=== PATIENT | male | born 1960 | race Caucasian/White ===

== ENCOUNTER 2017-10-03 15:14 | Inpatient (IN) | payer MEDICAID, OTHER ==
[~2017-10-03] VITALS: Ht 182.9 cm; Wt 118.2 kg
[2017-10-03] MEDS ORDERED: SODIUM CHLORIDE 0.9% 1,000 ML IV ONE (16:33)
[2017-10-03] MEDS ORDERED: FUROSEMIDE 40 MG/4 ML VIAL IV ONE (16:45)
[2017-10-03 17:01] LABS: Urine Bacteria MANY /hpf (None Seen); Urine Blood 3+ /uL (Negative); Urine Specific Gravity 1.014 (1.001-1.035); Urine WBC 832 /hpf (0 - 3); Urine WBC Clumps PRESENT /hpf (None Seen)
[2017-10-03] MEDS ORDERED: AZITHROMYCIN 500MG/ 250ML 250 ML IV ONE (17:15)
[2017-10-03] MEDS ORDERED: cefTRIAXone 1GM/10ml IVPUSH 10 ML IV ONE (17:15)
[2017-10-03 17:42] LABS: Basophils # (auto) 0 uL; Eosinophils # (auto) 0.3 uL; Hemoglobin 10.3 g/dL (13.5-17.5); Lymphocytes # (auto) 1.1 uL; Nucleated Red Blood Cells % 0.1 %
[2017-10-03 17:44] LABS: Basophils % (auto) 0.4 % (0.0-2.0); Eosinophils % (auto) 2.5 % (0.0-7.0); Hematocrit 31.9 % (41.0-53.0); Lymphocytes % (auto) 9.2 % (10.0-50.0); Mean Corpuscular Hemoglobin 27.6 pg (28.0-32.0); Mean Corpuscular Hgb Conc. 32.3 g/dL (32.0-36.0); Mean Corpuscular Volume 85.4 fL (80.0-100.0); Monocytes % (auto) 8.5 % (0.0-12.0); Neutrophils % (auto) 79.4 % (37.0-80.0); Platelet Count (auto) 56 10^3/uL (140-450); Red Blood Cells 3.74 10^6/uL (4.5-5.90); White Blood Cell 11.4 10^3/uL (4.4-10.8)
[2017-10-03 17:49] LABS: Red Cell Distribution Width 23.3 % (11.8-14.3)
[2017-10-03 18:05] LABS: Alanine Aminotransferase 27 U/L (16-61); Alkaline Phosphatase 305 U/L (45-117); Anion Gap 13 (5-15); Aspartate Aminotransferase 44 U/L (15-37); BUN/Creatinine Ratio 18.7; Blood Urea Nitrogen 34 mg/dL (7-18); Calcium 7.6 mg/dL (8.5-10.1); Carbon Dioxide 23 mmol/L (21-32); Chloride 93 mmol/L (98-107); GFR African American 49 mL/min; GFR Non-African American 41 mL/min; Glucose 56 mg/dL (74-106); Sodium 129 mmol/L (136-145); Total Protein 5.4 g/dL (6.4-8.2)
[2017-10-03 18:08] LABS: INR 1.17 (0.9-1.15); Partial Thromboplastin Time 31.9 sec (23.78-33.04); Prothrombin Time 12.4 sec (9.27-12.13)
[2017-10-03] MEDS ORDERED: ALBUTEROL SULF 2.5 MG/0.5ML(0.5%) NEB SOLN NEB PRN (18:45)
[2017-10-03] MEDS ORDERED: LORazepam 0.5 MG TAB PO PRN (18:45)
[2017-10-03] MEDS ORDERED: NITROGLYCERIN 0.4 MG SL TAB SL PRN (18:45)
[2017-10-03] MEDS ORDERED: TEMAZEPAM 15 MG CAP PO PRN (18:45)
[2017-10-03] MEDS ORDERED: MORPHINE SULF INJ 2 MG/ML SYRINGE 1ML IV PRN ×3 (18:45)
[2017-10-03] MEDS ORDERED: DEXTROSE (50%) 50ML SYRG IV PRN (18:45)
[2017-10-03] MEDS ORDERED: PROMETHAZINE HCL 25 MG/ML 1ML IV PRN (18:45)
[2017-10-03] MEDS ORDERED: LACTULOSE 20Gm/30ML SOLN PO PRN (18:45)
[2017-10-03] MEDS: ACCU-CHEK COMFORT CURVE STRIP VI SCH ×2 (20:24→23:20)
[2017-10-03] MEDS: FUROSEMIDE 40 MG/4 ML VIAL IV SCH (20:24)
[2017-10-03 21:31] VITALS: BP 112/52
[2017-10-03 22:00] VITALS: BP 115/53
[2017-10-04] MEDS: IPRATROPIUM BROM 0.5 MG/2.5ML INH SOL NEB SCH ×4 (00:11→18:45)
[2017-10-04] MEDS: ALBUTEROL SULF 2.5 MG/0.5ML(0.5%) NEB SOLN NEB SCH ×4 (00:11→18:44)
[2017-10-04 02:34] VITALS: BP 115/53
[2017-10-04] MEDS: ACCU-CHEK COMFORT CURVE STRIP VI SCH ×4 (03:34→22:00)
[2017-10-04] MEDS: cefTRIAXone 1GM/10ml IVPUSH 10 ML IV SCH (03:48)
[2017-10-04 05:00] VITALS: BP 123/71
[2017-10-04] MEDS: FUROSEMIDE 40 MG/4 ML VIAL IV SCH ×2 (05:08→17:53)
[2017-10-04] MEDS ORDERED: PNEUMOCOCCAL VACC POLYS 25 MCG/0.5 ML VIAL IM ONE (06:00)
[2017-10-04 07:27] LABS: Basophils # (auto) 0 uL; Basophils % (auto) 0.2 % (0.0-2.0); Eosinophils # (auto) 0 uL; Eosinophils % (auto) 0.1 % (0.0-7.0); Hematocrit 31.6 % (41.0-53.0); Hemoglobin 10.4 g/dL (13.5-17.5); Lymphocytes # (auto) 0.5 uL; Lymphocytes % (auto) 4.9 % (10.0-50.0); Mean Corpuscular Hemoglobin 27.6 pg (28.0-32.0); Mean Corpuscular Hgb Conc. 32.9 g/dL (32.0-36.0); Mean Corpuscular Volume 84.1 fL (80.0-100.0); Monocytes # (auto) 0.1 uL; Monocytes % (auto) 1.2 % (0.0-12.0); Neutrophils # (auto) 8.7 uL; Neutrophils % (auto) 93.6 % (37.0-80.0); Nucleated Red Blood Cells % 0.1 %; Platelet Count (auto) 51 10^3/uL (140-450); Red Blood Cells 3.76 10^6/uL (4.5-5.90); Red Cell Distribution Width 22.8 % (11.8-14.3); White Blood Cell 9.3 10^3/uL (4.4-10.8)
[2017-10-04 07:51] LABS: Albumin 1.9 g/dL (3.4-5.0); Calcium 7.7 mg/dL (8.5-10.1); Potassium 4.4 mmol/L (3.5-5.1); Total Protein 5.5 g/dL (6.4-8.2)
[2017-10-04 08:54] VITALS: BP 133/82
[2017-10-04] MEDS: PANTOPRAZOLE 40 MG TAB PO SCH (10:57)
[2017-10-04] MEDS: AZITHROMYCIN 500MG/ 250ML 250 ML IV SCH (10:58)
[2017-10-04] MEDS: LACTULOSE 20Gm/30ML SOLN PO SCH (10:58)
[2017-10-04] MEDS ORDERED: DEXTROSE (50%) 50ML SYRG IV PRN (12:45)
[2017-10-04 13:00] VITALS: BP 140/82
[2017-10-04 17:00] VITALS: BP 144/85
[2017-10-04] MEDS: InsuLIN REG 1unit/0.01ml Soln (100units/ml) SC SCH ×2 (18:03→22:00)
[2017-10-04 22:00] VITALS: BP 117/61
[2017-10-05 05:00] VITALS: BP 124/73
[2017-10-05] MEDS: ACCU-CHEK COMFORT CURVE STRIP VI SCH ×4 (06:12→21:43)
[2017-10-05] MEDS: InsuLIN REG 1unit/0.01ml Soln (100units/ml) SC SCH ×4 (06:12→21:43)
[2017-10-05] MEDS: FUROSEMIDE 40 MG/4 ML VIAL IV SCH ×2 (06:13→18:03)
[2017-10-05] MEDS: ALBUTEROL SULF 2.5 MG/0.5ML(0.5%) NEB SOLN NEB SCH ×4 (06:16→18:53)
[2017-10-05] MEDS: IPRATROPIUM BROM 0.5 MG/2.5ML INH SOL NEB SCH ×4 (06:16→18:52)
[2017-10-05 06:18] LABS: Basophils # (auto) 0 uL; Basophils % (auto) 0.1 % (0.0-2.0); Eosinophils # (auto) 0 uL; Hematocrit 33.5 % (41.0-53.0)
[2017-10-05 06:28] LABS: BUN/Creatinine Ratio 23.1; Bilirubin, Total 2.8 mg/dL (0.2-1.0); Calcium 7.8 mg/dL (8.5-10.1); Total Protein 5.8 g/dL (6.4-8.2)
[2017-10-05 06:32] LABS: Hemoglobin 11.1 g/dL (13.5-17.5); Lymphocytes # (auto) 0.7 uL; Lymphocytes % (auto) 5.5 % (10.0-50.0); Mean Corpuscular Volume 84.8 fL (80.0-100.0); Monocytes # (auto) 0.6 uL; Monocytes % (auto) 4.8 % (0.0-12.0); Neutrophils # (auto) 10.8 uL; Neutrophils % (auto) 89.6 % (37.0-80.0); Nucleated Red Blood Cells % 0.1 %; Platelet Count (auto) 65 10^3/uL (140-450); Red Blood Cells 3.95 10^6/uL (4.5-5.90)
[2017-10-05 07:01] LABS: Red Cell Distribution Width 22.9 % (11.8-14.3)
[2017-10-05 09:42] VITALS: BP 143/76
[2017-10-05] MEDS: AZITHROMYCIN 500MG/ 250ML 250 ML IV SCH (10:16)
[2017-10-05] MEDS: cefTRIAXone 1GM/10ml IVPUSH 10 ML IV SCH (10:16)
[2017-10-05] MEDS: LACTULOSE 20Gm/30ML SOLN PO SCH (10:16)
[2017-10-05] MEDS: PANTOPRAZOLE 40 MG TAB PO SCH (10:17)
[2017-10-05 13:02] VITALS: BP 124/75
[2017-10-05 17:22] VITALS: BP 115/74
[2017-10-05 22:00] VITALS: BP 113/66
[2017-10-06] MEDS: ALBUTEROL SULF 2.5 MG/0.5ML(0.5%) NEB SOLN NEB SCH ×4 (00:12→18:00)
[2017-10-06] MEDS: IPRATROPIUM BROM 0.5 MG/2.5ML INH SOL NEB SCH ×4 (00:12→18:00)
[2017-10-06 05:00] VITALS: BP 124/76
[2017-10-06] MEDS: FUROSEMIDE 40 MG/4 ML VIAL IV SCH ×2 (05:23→17:50)
[2017-10-06] MEDS: ACCU-CHEK COMFORT CURVE STRIP VI SCH ×4 (06:01→21:59)
[2017-10-06] MEDS: InsuLIN REG 1unit/0.01ml Soln (100units/ml) SC SCH ×4 (06:01→21:59)
[2017-10-06 06:58] LABS: Hematocrit 33.2 % (41.0-53.0); Mean Corpuscular Hemoglobin 28.2 pg (28.0-32.0); Mean Corpuscular Hgb Conc. 33.3 g/dL (32.0-36.0); Mean Corpuscular Volume 84.7 fL (80.0-100.0); Platelet Count (auto) 72 10^3/uL (140-450); Red Blood Cells 3.92 10^6/uL (4.5-5.90); White Blood Cell 8.2 10^3/uL (4.4-10.8)
[2017-10-06 07:06] LABS: Red Cell Distribution Width 23.3 % (11.8-14.3)
[2017-10-06 07:07] LABS: Basophils % (manual) 0 (0.0-2.0); Blast Cells 0; Metamyelocytes % 0; Myelocytes % 0; Promyelocytes % 0; Reactive Lymphocytes 0
[2017-10-06 07:09] LABS: BUN/Creatinine Ratio 26.6; Bilirubin, Total 2.2 mg/dL (0.2-1.0); Calcium 7.8 mg/dL (8.5-10.1); Potassium 3.9 mmol/L (3.5-5.1); Total Protein 5.7 g/dL (6.4-8.2)
[2017-10-06 07:58] LABS: Band Neutrophils % (manual) 1; Eosinophils % (manual) 1 (0-7); Lymphocytes % (manual) 19 (10.0-50.0); Monocytes % (manual) 9 (0-12)
[2017-10-06 08:30] VITALS: BP 127/75
[2017-10-06] MEDS: cefTRIAXone 1GM/10ml IVPUSH 10 ML IV SCH (09:09)
[2017-10-06] MEDS: AZITHROMYCIN 500MG/ 250ML 250 ML IV SCH (10:55)
[2017-10-06] MEDS: LACTULOSE 20Gm/30ML SOLN PO SCH (10:55)
[2017-10-06] MEDS: PANTOPRAZOLE 40 MG TAB PO SCH (10:56)
[2017-10-06 13:00] VITALS: BP 116/73
[2017-10-06 17:08] VITALS: BP 114/70
[2017-10-06 21:14] VITALS: BP 114/70
[2017-10-06 22:00] VITALS: BP 125/74
[2017-10-07] MEDS: IPRATROPIUM BROM 0.5 MG/2.5ML INH SOL NEB SCH ×3 (00:15→11:35)
[2017-10-07] MEDS: ALBUTEROL SULF 2.5 MG/0.5ML(0.5%) NEB SOLN NEB SCH ×3 (00:15→11:35)
[2017-10-07] MEDS: FUROSEMIDE 40 MG/4 ML VIAL IV SCH (05:53)
[2017-10-07 06:11] VITALS: BP 116/72
[2017-10-07] MEDS: InsuLIN REG 1unit/0.01ml Soln (100units/ml) SC SCH ×2 (06:28→13:05)
[2017-10-07] MEDS: ACCU-CHEK COMFORT CURVE STRIP VI SCH ×2 (06:28→13:06)
[2017-10-07 07:34] LABS: Hematocrit 32.1 % (41.0-53.0); Hemoglobin 10.9 g/dL (13.5-17.5); Mean Corpuscular Hemoglobin 28.6 pg (28.0-32.0); Mean Corpuscular Hgb Conc. 33.8 g/dL (32.0-36.0); Mean Corpuscular Volume 84.6 fL (80.0-100.0); Platelet Count (auto) 68 10^3/uL (140-450); White Blood Cell 6.9 10^3/uL (4.4-10.8)
[2017-10-07 07:41] LABS: Potassium 3.8 mmol/L (3.5-5.1)
[2017-10-07 07:48] LABS: Red Cell Distribution Width 22.2 % (11.8-14.3)
[2017-10-07 07:49] LABS: Albumin 1.9 g/dL (3.4-5.0); BUN/Creatinine Ratio 29.3; Band Neutrophils % (manual) 0; Basophils % (manual) 0 (0.0-2.0); Blast Cells 0; Calcium 7.7 mg/dL (8.5-10.1); Metamyelocytes % 0; Myelocytes % 0; Promyelocytes % 0; Reactive Lymphocytes 0
[2017-10-07 08:00] VITALS: BP 116/72
[2017-10-07 08:01] LABS: Bilirubin, Total 2.1 mg/dL (0.2-1.0); Total Protein 5.4 g/dL (6.4-8.2)
[2017-10-07 08:43] LABS: Eosinophils % (manual) 1 (0-7); Lymphocytes % (manual) 9 (10.0-50.0); Monocytes % (manual) 14 (0-12)
[2017-10-07 09:00] VITALS: BP 110/69
[2017-10-07] MEDS: cefTRIAXone 1GM/10ml IVPUSH 10 ML IV SCH (09:43)
[2017-10-07] MEDS: PANTOPRAZOLE 40 MG TAB PO SCH (09:43)
[2017-10-07] MEDS: AZITHROMYCIN 500MG/ 250ML 250 ML IV SCH (09:44)
[2017-10-07] MEDS: LACTULOSE 20Gm/30ML SOLN PO SCH (09:44)
[2017-10-07 12:07] VITALS: BP 116/72
[2017-10-07 12:56] VITALS: BP 122/71
== END 2017-10-07 13:20 | disposition home or self-care (01) | DRG 720 ==
LOC: ER 15:17 → TELE 15:18 → TELE-CENTR 20:48 → TELE 20:48 → TELE-CENTR 21:06
PROVIDERS: ADMIT Internal Medicine; ATTEND Family Medicine
DX: A41.9 Sepsis, unspecified organism (principal); E43 Unspecified severe protein-calorie malnutrition; I50.43 Acute on chronic combined systolic (congestive) and diastolic (congestive) heart failure; K76.6 Portal hypertension; J18.1 Lobar pneumonia, unspecified organism; E72.20 Disorder of urea cycle metabolism, unspecified; I11.0 Hypertensive heart disease with heart failure; J44.0 Chronic obstructive pulmonary disease with (acute) lower respiratory infection; D69.59 Other secondary thrombocytopenia; B96.20 Unspecified Escherichia coli [E. coli] as the cause of diseases classified elsewhere; E16.2 Hypoglycemia, unspecified; S09.90XA Unspecified injury of head, initial encounter; K70.30 Alcoholic cirrhosis of liver without ascites; E66.01 Morbid (severe) obesity due to excess calories; R60.1 Generalized edema; N39.0 Urinary tract infection, site not specified; D64.9 Anemia, unspecified; F10.10 Alcohol abuse, uncomplicated; F17.200 Nicotine dependence, unspecified, uncomplicated; K52.9 Noninfective gastroenteritis and colitis, unspecified; W18.30XA Fall on same level, unspecified, initial encounter; Z23 Encounter for immunization; Z79.899 Other long term (current) drug therapy; Z59.0 Homelessness; Z68.35 Body mass index [BMI] 35.0-35.9, adult; Y93.89 Activity, other specified; Y92.89 Other specified places as the place of occurrence of the external cause
CPT/HCPCS: 36415; 51702; 70450; 71045; 72170; 74176; 80053; 80061; 81001; 82140; 82550; 82962; 83036; 83605; 83880; 84443; 84484; 85007; 85025; 85027; 85610; 85730; 87040; 87070; 87077; 87081; 87086; 87088; 87186; 87205; 93005; 93306; 93970; 94640; 96361; 96365; 96375; J1815